=== PATIENT | female | born 1970 | race Caucasian/White ===

== ENCOUNTER 2020-06-10 15:53 | Emergency (ER) | payer OTHER ==
[2020-06-10 19:55] LABS: BASOPHIL 0.7 % (0-2); EOSINOPHIL 1.2 % (0-5); HCT 38.1 % (37.0-47.0); HGB 12.2 g/dl (12.5-16.0); LYMPHOCYTE 26.8 % (15-48); MCV 87.6 fL (78.0-100.0); MONOCYTE 5.5 % (0-12); MPV 8.8 fL (6.0-9.5); NEUTROPHIL 65.5 % (41-80); NRBC 0; PLT 283 K/uL (150-400); RBC 4.35 M/uL (4.20-5.40); RDW 14.6 % (11.5-14.0); WBC 8.9 K/uL (4.0-10.5)
[2020-06-10 20:13] LABS: BUN/CREAT RATIO (CALC) 12.2 RATIO; CREATININE 0.9 mg/dL (0.51-0.95); POTASSIUM 3.6 mmol/L (3.5-5.1)
[2020-06-10] MEDS ORDERED: CEPHALEXIN500 M1 PO (22:30)
== END 2020-06-10 22:42 | disposition home or self-care (01) ==
LOC: FER 15:53
PROVIDERS: Nurse Practitioner Family
DX: L03.116 Cellulitis of left lower limb (principal); R60.0 Localized edema; I10 Essential (primary) hypertension; J45.909 Unspecified asthma, uncomplicated
CPT/HCPCS: 36415; 80048; 85025; 93971